=== PATIENT | female | born 1985 | race Two or more races ===

== ENCOUNTER 2019-04-02 01:00 | Emergency (ER) | payer SELFPAY ==
[~2019-04-02] VITALS: Ht 165.1 cm; Wt 59.0 kg
[2019-04-02 01:43] VITALS: BP 96/52
[2019-04-02 02:09] LABS: Amphetamine Screen, Urine POSITIVE (NEGATIVE); Barbiturate Scree,Urine NEGATIVE (NEGATIVE); Benzodiazephine Screen, Urine NEGATIVE (NEGATIVE); Cannabinoid Screen, Urine POSITIVE (NEGATIVE); Cocaine Screen, Urine NEGATIVE (NEGATIVE)
[2019-04-02 02:17] LABS: Opiate Scree,Urine NEGATIVE (NEGATIVE); Phencyclidine Screen, Urine NEGATIVE (NEGATIVE)
[2019-04-02 02:22] LABS: Urine Pregnacy Test Negative (Negative)
[2019-04-02 02:30] LABS: Urine Bacteria NONE SEEN /hpf (None Seen); Urine Blood 2+ /uL (Negative); Urine Specific Gravity 1.032 (1.001-1.035); Urine WBC 6 /hpf (0 - 5)
== END 2019-04-02 03:50 | disposition left against medical advice (07) ==
LOC: ER 01:06
DX: R53.1 Weakness (principal); Z53.21 Procedure and treatment not carried out due to patient leaving prior to being seen by health care provider
CPT/HCPCS: 74176; 80307; 81001; 81025

== ENCOUNTER 2019-04-02 21:58 | Emergency (ER) | payer SELFPAY ==
[~2019-04-02] VITALS: Ht 162.6 cm; Wt 59.0 kg
[2019-04-03 00:45] VITALS: BP 110/56
[2019-04-03] MEDS: AZITHROMYCIN 250 MG TAB PO ONE (01:25)
[2019-04-03] MEDS: PHENAZOPYRIDINE HCL 100 MG TAB PO ONE (01:25)
[2019-04-03] MEDS: cefTRIAXone SOD 1,000 MG VL IM ONE (01:29)
== END 2019-04-03 01:30 | disposition home or self-care (01) ==
LOC: ER 22:04
DX: N73.9 Female pelvic inflammatory disease, unspecified (principal)
CPT/HCPCS: 96372; 99283; J0696

== ENCOUNTER → 2019-04-07 | Emergency (ER) | payer SELFPAY | END | disposition left against medical advice (07) | LOC: ER 23:38 | DX: R51 Headache (principal); Z53.21 Procedure and treatment not carried out due to patient leaving prior to being seen by health care provider ==

== ENCOUNTER 2021-09-01 04:06 | Emergency (ER) | payer SELFPAY ==
[~2021-09-01] VITALS: Ht 162.6 cm; Wt 63.5 kg
[2021-09-01 04:07] VITALS: BP 123/75
== END 2021-09-01 05:38 | disposition left against medical advice (07) ==
LOC: ER 04:06
DX: R51.9 Headache, unspecified (principal); R42 Dizziness and giddiness; H53.8 Other visual disturbances; Z53.21 Procedure and treatment not carried out due to patient leaving prior to being seen by health care provider

== ENCOUNTER 2025-07-02 12:22 | Emergency (ER) | payer MEDICAID, OTHER ==
[~2025-07-02] VITALS: Ht 162.6 cm; Wt 64.5 kg
[2025-07-02 12:24] VITALS: BP 133/107; PULSE 103; RESP 16; TEMP 97.3; O2SAT 95
== END 2025-07-02 14:10 | disposition left against medical advice (07) ==
LOC: ER 12:22
DX: Z48.00 Encounter for change or removal of nonsurgical wound dressing (principal); Z53.21 Procedure and treatment not carried out due to patient leaving prior to being seen by health care provider

== ENCOUNTER 2025-07-11 03:11 | Emergency (ER) | payer MEDICAID ==
[~2025-07-11] VITALS: Ht 162.6 cm; Wt 67.2 kg
[2025-07-11 03:12] VITALS: BP 127/65; PULSE 107; RESP 15; TEMP 97; O2SAT 97
--- NOTE | 2025-07-11 03:47 | ED.PDOC ---
History of Present Illness(SKN HPI Comments This patient is a 39-year-old female who arrives the ED today for evaluation of skin rash concerns. Patient states she went to her primary care provider and was given antibiotics for the rash two weeks ago, but states that the medication was ineffective in the rationale exist. Patient arrives with a large patches of eczema noted to the forearms and antecubital fossa. Additionally, patient has hordeolum and/or chalazon wounds to bilateral lids. Vital signs were stable Chief Complaint: Rash Time Seen by MD: 03:38 Primary Care Provider: DENIES History of Present Illness: Nurses Notes Allergies: Coded Allergies: NO KNOWN ALLERGIES (Unverified , 04/02/19) Information Source: Patient Mode of Arrival: Ambulatory Severity: Moderate Timing: Weeks Duration: Since onset Prehospital treatment: Treatment Location: Arm, Face Mechanism: Spontaneous Onset Developed: Pruritus Tetanus: UTD Associated Signs and Symptoms: Redness Past Medical History PAST MEDICAL HISTORY: Denies Surgical History: Denies all surgeries IT FIELD TECHNICIAN History: No Pertinent IT FIELD TECHNICIAN History Family History Family History: Unknown Social History Smoker: Non-Smoker Alcohol: Denies ETOH Use Drugs: Denies Drug Use Lives In: Home Constitutional: denies: chills, diaphoresis, fatigue, fever, malaise, sweats, weakness, others EENTM: denies: blurred vision, double vision, ear bleeding, ear discharge, ear drainage, ear pain, ear ringing, eye pain, eye redness, hearing loss, mouth pain, mouth swelling, nasal discharge, nose bleeding, nose congestion, nose pain, photophobia, tearing, throat pain, throat swelling, voice changes, others Respiratory: denies: cough, hemoptysis, orthopnea, SOB at rest, shortness of breath, SOB with excertion, stridor, wheezing, others Cardiovascular: denies: chest pain, dizzy spells, diaphoresis, Dyspnea on exertion, edema, irregular heart beat, left arm pain, lightheadedness, palpitations, PND, syncope, others Gastrointestinal: denies: abdomen distended, abdominal pain, blood streaked bowels, constipated, diarrhea, dysphagia, difficulty swallowing, hematemesis, melena, nausea, poor appetite, poor fluid intake, rectal bleeding, rectal pain, vomiting, others Genitourinary: denies: abnormal vagina bleeding, burning, dyspareunia, dysuria, flank pain, frequency, hematuria, incontinence, pain, , vagina discharge, urgency, others Neurological: denies: dizziness, fainting, headache, left sided numbness, left sided weakness, numbness, paresthesia, pre-existing deficit, right sided numbness, right sided weakness, seizure, speech problems, tingling, tremors, weakness, others Musculoskeletal: denies: back pain, gout, joint pain, joint swelling, muscle pain, muscle stiffness, neck pain, others Integumetry: reports: others (Patchy global rash concerns.); denies: bruises, change in color, change in hair/nails, dryness, laceration, lesions, lumps, rash, wounds Allergic/Immunocompromised: denies: Difficulty Healing, Frequent Infections, Hives, Itching, others Hematologic/Lymphatic: denies: anemia, blood clots, easy bleeding, easy bruising, swollen glands, others Endocrine: denies: excessive hunger, excessive sweating, excessive thirst, excessive urination, flushing, intolerance to cold, intolerance to heat, unexplained weight gain, unexplained weight loss, others Psychiatric: denies: anxiety, bipolar disorder, depression, hopeless, panic disorder, schizophrenia, sleepless, suicidal, others Physical Exam General Appearance: Mild Distress (Moderate distress due to rash concerns.), Normal HEENT: Pharynx Normal, TMs Normal, Other (Patient displays a hordeolum to the left lower lid and right upper lid.) Neck: Full Range of Motion, Non-Tender, Normal, Normal Inspection Respiratory: Chest Non-Tender, Lungs Clear, No Accessory Muscle Use, No Respiratory Distress, Normal Breath Sounds Cardiovascular: No Edema, No JVD, No Murmur, No Gallop, Normal Peripheral Pulses, Regular Rate/Rhythm Breast Exam: Deferred Gastrointestinal: No Organomegaly, Non Tender, No Pulsatile Mass, Normal Bowel Sounds, Soft Genitalia: Deferred Pelvic: Deferred Rectal: Deferred Extremities: No calf tenderness, Non-tender Neurologic: Alert Cerebellar Function: NOT DONE Reflexes: NOT DONE Skin: Other (Patient has a patchy eczema noted throughout bilateral arms at the anterior wrist and antecubital regions. Additional asthmatic rash noted around neck. Patient has a additional skin concerns that looked be resolving that may be insect bites in nature. No lymphangitis.) Lymphatic: No Adenopathy Was a procedure done? Was a procedure done?: No Differential Diagnosis (INTG) Differential Diagnosis: Other (Eczema, skin rash) X-Ray, Labs, Meds, VS Vital Signs Date Time Temp Pulse Resp B/P (MAP) Pulse Ox O2 Delivery O2 Flow Rate FiO2 07/11/25 03:12 97.0 107 15 127/65 97 97.0 X-Ray, Labs, Meds, VS Comment Advised patient she needs to follow up with her primary care provider again for re-evaluation of her rash concerns as well as discussions related to her definitive eczema issues. Patient may require a referral to Rheumatology for assessment. Additionally, advised patient to utilize Chris's baby shampoo and a warm washcloth to aid in the release of her hordeolum concerns. Time of 1ST Reevaluation: 03:45 Reevaluation 1ST: Unchanged Consultation: PCP, Other (Dermatology) Patient Education/Counseling: Diagnosis, Treatment Family Education/Counseling: Diagnosis, Treatment SEPSIS Sepsis Screen Date sepsis recognized/suspect: Jul 11, 2025 Time Sepsis recognized/suspect: 318 Recent Procedure: No On Antibiotic Therapy: No Respiratory Rate >20: No Heart Rate >90: Yes Temp<36 C (96.8 F) or >38.3 C: No SBP <90 or MAP <65 mmHG: No New Acute Mental Status Change: No Is the patient on CPAP, BIPAP,: No Vital Signs Date Time Temp Pulse Resp B/P (MAP) Pulse Ox O2 Delivery O2 Flow Rate FiO2 07/11/25 03:12 97.0 107 15 127/65 97 97.0 Departure 1 Departure Time of Disposition: 03:46 Impression: Primary Impression: Skin rash Additional Impression: Eczema Disposition: 01 HOME / SELF CARE / HOMELESS Condition: Stable Additional Instructions: Advised patient utilize Chris's baby shampoo and soft cleaning of her lids to aid in the resolution of the hordeolum. Patient will need to follow up with the primary care provider for dermatologic referral and evaluation as the patient needs assistance with the eczema as well as other nonspecific skin concerns. Discharged With: Self, Friend Critical Care Note Critical Care Time?: No Stability Stability form required: No Heart Score Heart Score: Heart Score Response (Comments) Value History N/A 0 EKG N/A 0 Age N/A 0 Risk Factors N/A 0 Troponin N/A 0 Total 0 INGRIS IQBAL PAC Jul 11, 2025 03:47
== END 2025-07-11 05:00 | disposition home or self-care (01) ==
LOC: ER 03:11
DX: L30.9 Dermatitis, unspecified (principal)